=== PATIENT | male | born 1990 | race Caucasian/White ===

== ENCOUNTER 2020-12-05 14:35 | Emergency (ER) | payer BC, SELFPAY ==
--- NOTE | 2020-12-05 15:04 | ED.EAR ---
HPI - Ear Problem General Chief complaint: Ear Stated complaint: Ear complaint Source: patient Limitations: no limitations History of Present Illness HPI Narrative: The patient, presenting mostly healthy, presents with left ear discomfort. Patient states he has a couple day history decreased hearing acuity, despite using [id number] De[employer]. Symptoms are mild, worse with palpitation, attributed to using earplugs. No fever, discharge, trauma, vertigo, tinnitus Review of Systems Review of Systems: Narrative: General/Constitutional: No weight loss,fever Eyes: N0: Redness,discharge Ears/Nose/Throat: No: Epistaxis,ear discharge Respiratory: Denies: Hemoptysis Gastrointestinal: No Vomiting, Bleeding-rectal Skin: No Lumps, eruption Neurologic: No Focal Weakness,Sz Hematologic: Denies: Petechiae/Purpura PMFSH Comments At time of signature, agree with nursing past medical, surgical, social and family history. There is no relevant family history pertinent to the presenting complaint Exam Narrative: Exam Narrative: General Appearance: Well appearing, No distress, Conjunctiva clear Ears: Left EAC with inspissated cerumen; EACs and TMs benign after removal of wax Nose: Normal nose Mouth/Throat: Normal appearing, Normal lips: Supple Respiratory: Airway patent, No respiratory distress Musculoskeletal: Full ROM Skin: Warm, Dry Neurological: A&O x3, CN II-X intact Psychiatric: Normal mood, Normal affect Course Vital Signs Vital signs: Vital Signs Temperature 98.3 F 12/05/20 15:12 Pulse Rate 80 12/05/20 15:12 Respiratory Rate 16 12/05/20 15:12 Blood Pressure 133/85 12/05/20 15:12 Pulse Oximetry 99 12/05/20 15:12 Temperature 98.3 F 12/05/20 15:12 Pulse Rate 80 12/05/20 15:12 Respiratory Rate 16 12/05/20 15:12 Blood Pressure 133/85 12/05/20 15:12 Pulse Oximetry 99 12/05/20 15:12 Procedures Ear Wax Removal Left Ear: Ear Wax Removal Date: 12/05/20 Cerumenolytic Used: other (Peroxide) Results: Re-examined: cerumen removed completely TM Examination: TM(s) intact, normal appearance Ear Canal Exam: atraumatic Patient Tolerated Procedure: well Complications: no problems Technique: ear canal irrigated Medical Decision Making Vital Signs Vital Signs: Vital Signs Temperature 98.3 F 12/05/20 15:12 Pulse Rate 80 12/05/20 15:12 Respiratory Rate 16 12/05/20 15:12 Blood Pressure 133/85 12/05/20 15:12 Pulse Oximetry 99 12/05/20 15:12 Temperature 98.3 F 12/05/20 15:12 Pulse Rate 80 12/05/20 15:12 Respiratory Rate 16 12/05/20 15:12 Blood Pressure 133/85 12/05/20 15:12 Pulse Oximetry 99 12/05/20 15:12 Discharge Plan Discharge Clinical Impression: Impacted cerumen, left ear Patient Disposition: Home, Self-Care Condition: Stable Follow-up/Referrals: PHYSICIAN,MEDICAL ANTHROPOLOGY DIRECTOR [Primary Care Provider] -
[2020-12-05 15:12] VITALS: BP 133/85; PULSE 80; RESP 16; TEMP 36.8; O2SAT 99
== END 2020-12-05 15:24 | disposition home or self-care (01) ==
PROVIDERS: Emergency Provider Emergency Medicine
DX: H61.22 Impacted cerumen, left ear (principal)
CPT/HCPCS: 69209; 99212; A9270; G0463